=== PATIENT | female | born 1995 | race African-American/Black ===

== ENCOUNTER 2016-10-20 18:31 | Emergency (ER) | payer OTHER ==
[2016-10-20 18:39] VITALS: BP 104/54
--- NOTE | 2016-10-20 21:01 | UC ---
Skin Complaint HPI - HPI Summary HPI Summary: TENDER HARD ROUND BUMP IN FRONT OF RIGHT EAR. HAD RASH ON FOREHEAD AND BEDBUGS ONE WEEK AGO. NO FEVER, NO ABDOMINAL PAIN. NO EAR ACHE OR SORE THORAT. NO HEADACHE. NO TRAUMA. NO DENTAL PAIN. NO DISCHARGE. - History of Current Complaint Chief Complaint: UCEar Time Seen by Provider: 10/20/16 20:11 Stated Complaint: BUMP NEAR EAR W/ JAW PAIN,NUMBNESS Hx Obtained From: Patient, Family/[place] Hx Last Menstrual Period: August 2016 Onset/Duration: Gradual Onset, Lasting Weeks, Worse Since - TWO DAYS Skin Exposure Onset/Duration: Days Ago Onset Severity: Mild Current Severity: Moderate Pain Intensity: 0 Pain Scale Used: 0-10 Numeric Location: Ear (Right) - ANTERIOR Character: Swelling, Raised, Painful Aggravating: Nothing Alleviating: Nothing Associated Signs & Symptoms: Positive: Negative - Allergy/Home Medications Allergies/Adverse Reactions: Allergies Allergy/AdvReac Type Severity Reaction Status Date / Time Latex Allergy Mild Swelling Verified 10/20/16 18:40 Review of Systems Constitutional: Negative Skin: Rash, Other - BUMP IN FRONT OF RIGHT EAR Eyes: Negative ENT: Negative Respiratory: Negative Cardiovascular: Negative Gastrointestinal: Negative Genitourinary: Negative Motor: Negative Neurovascular: Negative Musculoskeletal: Negative Neurological: Negative Psychological: Negative All Other Systems Reviewed And Are Negative: Yes PMH/Surg Hx/FS Hx/Imm Hx Previously Healthy: Yes - Surgical History Surgical History: None - Family History Known Family History: Negative: Blood Disorder - Social History Occupation: Student Lives: With Family Alcohol Use: None Substance Use Type: None Smoking Status (MU): Never Smoked Tobacco Physical Exam Triage Information Reviewed: Yes Appearance: Well-Appearing, No Pain Distress, Well-Nourished Vital Signs: Initial Vital Signs Temp 98.1 F 10/20/16 18:35 Pulse 87 10/20/16 18:35 Resp 18 10/20/16 18:35 BP 104/54 10/20/16 18:35 Pulse Ox 100 10/20/16 18:35 Vital Signs Reviewed: Yes Eye Exam: Normal ENT Exam: Normal ENT: Positive: Normal ENT inspection, TMs normal Dental Exam: Normal Neck exam: Normal Neck: Positive: Supple, Nontender, Enlarged Nodes @ - RIGHT ANTERIOR CERVICAL CHAIN Respiratory Exam: Normal Respiratory: Positive: Chest non-tender, Lungs clear, Normal breath sounds, No respiratory distress Cardiovascular Exam: Normal Cardiovascular: Positive: RRR, No Murmur, Pulses Normal Abdominal Exam: Normal Musculoskeletal Exam: Normal Musculoskeletal: Positive: Strength Intact, ROM Intact Neurological Exam: Normal Psychological Exam: Normal Skin: Positive: rashes Course/Dx - Differential Diagnoses - Skin Complaint Differential Diagnoses: Cellulitis, Lymphadenitis, Lymphangitis, Varicella Zoster - Diagnoses Provider Diagnoses: LYMPHADENOPATHY Discharge - Discharge Plan Condition: Stable Disposition: HOME Prescriptions: Amoxicillin/Clavulanate TAB* [Augmentin TAB 875*] 875 mg PO BID #20 tab Patient Education Materials: Lymphadenopathy (ED) Referrals: Valarie Koo MD [Primary Care Provider] -
== END 2016-10-20 20:47 | disposition home or self-care (01) ==
LOC: UCEAST 18:31
DX: R59.1 Generalized enlarged lymph nodes (principal)
CPT/HCPCS: 99212; G0463